=== PATIENT | female | born 1995 | race Two or more races ===

== ENCOUNTER 2021-01-04 13:45 | Inpatient (IN) | payer OTHER ==
[~2021-01-04] VITALS: Ht 154.9 cm; Wt 77.6 kg
[2021-01-14] MEDS ORDERED: PRENATAL TABLE1 EAC4 PO (11:40)
== END 2021-01-16 15:09 | disposition home or self-care (01) | DRG 807 ==
LOC: LDR 01-14 10:32 → OB/GYN 01-14 10:32
PROVIDERS: ADMIT Obstetrics & Gynecology; ATTEND Obstetrics & Gynecology
PROC: 10E0XZZ Delivery of Products of Conception, External Approach (ICD-10-PCS; principal; 2021-01-14)
PROC: 0UQMXZZ Repair Vulva, External Approach (ICD-10-PCS; 2021-01-14)
PROC: 3E033VJ Introduction of Other Hormone into Peripheral Vein, Percutaneous Approach (ICD-10-PCS; 2021-01-14)
PROC: 4A1HXFZ Monitoring of Products of Conception, Cardiac Rhythm, External Approach (ICD-10-PCS; 2021-01-14)
DX: O71.82 Other specified trauma to perineum and vulva (principal); Z37.0 Single live birth; O99.824 Streptococcus B carrier state complicating childbirth; Z3A.39 39 weeks gestation of pregnancy; Z20.822 Contact with and (suspected) exposure to COVID-19

== ENCOUNTER 2021-01-11 11:35 | Outpatient (CLI) | payer OTHER | END 2021-01-11 12:48 | disposition home or self-care (01) | LOC: NST 11:35 | PROVIDERS: ATTEND Obstetrics & Gynecology | DX: Z34.83 Encounter for supervision of other normal pregnancy, third trimester (principal) ==

== ENCOUNTER 2021-01-14 09:43 | Outpatient (CLI) | payer OTHER ==
[2021-01-14] MEDS ORDERED: PRENATAL TABLE1 EAC4 PO (11:40)
== END 2021-01-14 10:35 | disposition still patient (30) ==
LOC: NST 09:43
PROVIDERS: ATTEND Obstetrics & Gynecology
DX: Z34.83 Encounter for supervision of other normal pregnancy, third trimester (principal)